=== PATIENT | female | born 1995 | race Hispanic/Latino ===

== ENCOUNTER 2018-02-13 04:34 | Inpatient (IN) | payer MEDICAID, SELFPAY ==
[2018-02-13] MEDS ORDERED: Lidocaine 1% (PF) 30 ML VIAL SC PRN (05:07)
[2018-02-13] MEDS ORDERED: HYDROcodone/Acetaminophen 5/325 mg Tablet PO PRN ×4 (05:07→05:10)
[2018-02-13] MEDS ORDERED: Ibuprofen 800 MG TAB PO PRN (05:07)
[2018-02-13] MEDS ORDERED: Carboprost 250 MCG/ML AMP IM PRN (05:07)
[2018-02-13] MEDS ORDERED: NS / Oxytocin 40 units/1000ml 1,000 ML IV PRN (05:07)
[2018-02-13] MEDS ORDERED: Methylergonovine 0.2 MG/ML VIAL IM PRN ×2 (05:07→05:10)
[2018-02-13] MEDS ORDERED: Misoprostol 200 MCG TAB PR PRN (05:07)
[2018-02-13] MEDS ORDERED: Diphenoxylate HCl/Atropine Tablet PO PRN ×2 (05:07)
[2018-02-13] MEDS ORDERED: Measles/Mumps/Rubella 10 MCG/0.5 ML VIAL SC ONE (05:10)
[2018-02-13] MEDS ORDERED: Ondansetron PF 4 MG/2 ML Vial IVP PRN (05:10)
[2018-02-13] MEDS ORDERED: Adacel (T-DAP) 0.5 ML VIAL IM ONE (05:10)
[2018-02-13] MEDS ORDERED: Milk Of Magnesia 30 ML UDCUP PO PRN (05:10)
[2018-02-13] MEDS ORDERED: Bisacodyl 10 MG SUPP PR PRN (05:10)
[2018-02-13] MEDS ORDERED: Benzocaine/Menthol 20-0.5% 60 ML CAN TOP PRN (05:10)
[2018-02-13] MEDS ORDERED: Zolpidem Tartrate 5 MG TAB PO PRN (05:10)
[2018-02-13] MEDS ORDERED: Lanolin Ointment 7 GM TUBE TOP PRN (05:10)
[2018-02-13] MEDS ORDERED: Preparation H Ointment 28 GM TUBE PR PRN (05:10)
[2018-02-13] MEDS ORDERED: Promethazine HCl 25 MG/ML VIAL IM PRN (05:10)
[2018-02-13] MEDS ORDERED: Varicella virus, LIVE 0.5 ML VIAL SC ONE (05:10)
[2018-02-13] MEDS ORDERED: Misoprostol 200 MCG TAB VAG PRN (05:10)
[2018-02-13] MEDS ORDERED: diphenhydrAMINE 25 MG CAP PO PRN (05:10)
[2018-02-13 05:13] VITALS: BMI 36.8
--- NOTE | 2018-02-13 05:13 | PDOC.LDHP ---
Labor and Delivery H&P Chief complaint: other (delivered) HPI: 22 y/o at 38w4d patient of Dr. Tiwari who delivered in [place], and presented for care. Having a small amount of bleeding but has essentially received no fluids/pitocin at this point. OB History Details: 1 prior term Current complications: none Past Medical History: None Current medications: pre- vitamins Previous surgical history: none Allergies/Adverse Reactions: Allergies Allergy/AdvReac Type Severity Reaction Status Date / Time No Known Allergies Allergy Unverified 02/13/18 05:08 Social history: none - Physical Exam Vital signs reviewed and normal: yes General: NAD, resting Lungs: nonlabored breathing Abdomen: gravid Extremeties: no edema - OB Labs GBS: positive - Assessment Term Patient s/p - Plan Plan: admit to L&D -: Routine management. Small hemostatic laceration not requiring repair. Dr. Tiwari notified.
[2018-02-13] MEDS ORDERED: NS / Oxytocin 40 units/1000ml 1,000 ML IV SCH (05:15)
[2018-02-13] MEDS ORDERED: NS / Oxytocin 40 units/1000ml 1,000 ML ONE (05:19)
[2018-02-13 07:30] LABS: Hemoglobin 9.8 g/dL (12.0-16.0); Red Blood Cell (RBC) Count 4.11 mill/uL (4.20-5.40); White Blood Cell (WBC) Count 14.1 thou/uL (4.8-10.8)
[2018-02-13 07:41] LABS: HBSAg Index 0.18 S/CO (0-0.99); Hep B Surf Ag Non-Reactive S/CO (NonReactive)
[2018-02-13] MEDS: Ibuprofen 800 MG TAB PO SCH ×3 (07:44→21:34)
[2018-02-13 07:45] LABS: Syphilis Antibody Nonreactive (Nonreactive); Syphilis Antibody Index 0.04 S/CO (<1.00 Non-Reactive)
[2018-02-13 07:52] LABS: Mean Corpuscular HGB CONC 31.9 g/dL (32.0-36.0); Mean Corpuscular Hemoglobin 23.8 pg (27.0-31.0); Mean Corpuscular Volume 74.6 fL (78.0-98.0); Platelet Count 239 thou/uL (130-400); RBC Distribution Width 15.9 % (11.5-14.5)
[2018-02-13] MEDS ORDERED: Sodium Chloride 0.9% 10 ML ONE (08:38)
[2018-02-13] MEDS: Prenatal Vitamin 1 TAB PO SCH (09:16)
[2018-02-13] MEDS: Docusate Calcium (SURFAK) 240 MG CAP PO SCH ×2 (09:16→21:34)
[2018-02-13] MEDS: Ferrous Sulfate 325 MG TAB PO SCH ×2 (09:16→17:20)
[2018-02-14] MEDS: Ibuprofen 800 MG TAB PO SCH ×3 (05:41→21:32)
[2018-02-14] MEDS: Docusate Calcium (SURFAK) 240 MG CAP PO SCH ×2 (09:27→21:32)
[2018-02-14] MEDS: Prenatal Vitamin 1 TAB PO SCH (09:27)
[2018-02-14] MEDS: Ferrous Sulfate 325 MG TAB PO SCH ×2 (09:27→17:07)
[2018-02-15] MEDS: Ibuprofen 800 MG TAB PO SCH (06:22)
[2018-02-15 07:58] VITALS: BP 119/61; TEMP 98.6
[2018-02-15] MEDS: Ferrous Sulfate 325 MG TAB PO SCH (09:52)
[2018-02-15] MEDS: Prenatal Vitamin 1 TAB PO SCH (09:52)
[2018-02-15] MEDS: Docusate Calcium (SURFAK) 240 MG CAP PO SCH (09:55)
== END 2018-02-15 13:50 | disposition home or self-care (01) | DRG 776 ==
LOC: L&D/OP 04:34 → L&D 04:35 → 3SW 06:32
PROVIDERS: ADMIT Family Medicine; ATTEND Family Medicine
DX: Z39.0 Encounter for care and examination of mother immediately after delivery (principal)
CPT/HCPCS: 36415; 85027; 86780; 86850; 86900; 86901; 87340